=== PATIENT | female | born 1945 | race Caucasian/White ===

== ENCOUNTER → 2018-03-14 11:35 | Outpatient (CLI) | payer MEDICARE, OTHER, SELFPAY ==
--- NOTE | 2018-03-14 | DI.MG.S_ITS ---
BILATERAL DIGITAL SCREENING MAMMOGRAM 3D/2D WITH CAD: 03/14/2018 CLINICAL: Routine screening. Comparison is made to exams dated: 01/21/2015 mammogram, 01/08/2013 mammogram, and 08/25/2010 mammogram - [facility]. The tissue of both breasts is heterogeneously dense. This may lower the sensitivity of mammography. Current study was also evaluated with a Computer Aided Detection (CAD) system. There are benign calcifications in both breasts. No significant masses, calcifications, or other findings are seen in either breast. There has been no significant interval change. IMPRESSION: BENIGN There is no mammographic evidence of malignancy. A 1 year screening mammogram is recommended. This exam was interpreted at Station ID: [id number]. NOTE: For mammograms, a report in lay terms will be sent to the patient. Approximately 15% of breast malignancies will not be visualized mammographically. In the management of a palpable breast mass, a negative mammogram must not discourage biopsy of a clinically suspicious lesion. Electronically Signed By: Carmenza bonner/bogdan:03/14/2018 13:27:00 letter sent: Normal Exam ACR BI-RADS Category 2: Benign Finding(s) 3342F
== END ==
PROVIDERS: PCP Family Medicine; Visit Provider Family Medicine
DX: Z12.31 Encounter for screening mammogram for malignant neoplasm of breast (principal)
CPT/HCPCS: 77063; 77067

== ENCOUNTER → 2020-03-27 10:08 | Outpatient (CLI) | payer MEDICARE, OTHER, SELFPAY ==
--- NOTE | 2020-03-27 | DI.MG.S_ITS ---
BILATERAL DIGITAL SCREENING MAMMOGRAM 3D/2D WITH CAD: 03/27/2020 CLINICAL: Routine screening. Comparison is made to exams dated: 03/14/2018 mammogram - [facility], 01/21/2015 mammogram, and 01/08/2013 mammogram - [facility]. The tissue of both breasts is heterogeneously dense. This may lower the sensitivity of mammography. Current study was also evaluated with a Computer Aided Detection (CAD) system. There are benign calcifications in both breasts. No significant masses, calcifications, or other findings are seen in either breast. There has been no significant interval change. IMPRESSION: There is no mammographic evidence of malignancy. A 1 year screening mammogram is recommended. This exam was interpreted at Station ID: [id number]. NOTE: For mammograms, a report in lay terms will be sent to the patient. Approximately 15% of breast malignancies will not be visualized mammographically. In the management of a palpable breast mass, a negative mammogram must not discourage biopsy of a clinically suspicious lesion. Electronically Signed By: Albert cedeno/bogdan:03/27/2020 15:38:16 copy to: Clarisa Drew letter sent: Normal Exam ACR BI-RADS Category 2: Benign Finding(s) 3342F
== END ==
PROVIDERS: Family Provider Family Medicine; PCP Family Medicine; Referring Provider Family Medicine; Visit Provider Family Medicine
DX: Z12.31 Encounter for screening mammogram for malignant neoplasm of breast (principal)
CPT/HCPCS: 77063; 77067

== ENCOUNTER → 2021-11-26 14:02 | Outpatient (CLI) | payer MEDICARE, OTHER, SELFPAY ==
--- NOTE | 2021-11-26 16:00 | DI.ECHO.S_ITS ---
[facility]---------+ [facility] +---------+ : : [address] : : : : [id number] : : : : Phone: [phone]+ Echocardiogram Report + + :Name: DIPTI RAMIREZ Study Date: 11/26/2021 Height: 67 in : :[facility] ReadingLocation: Weight: 140 lb : : Gender: Female BSA: 1.7 m2 : :: 1945 Age: 76 yrs BP: 126/74 mmHg: :Reason For Study: Murmur : :Ordering Physician: Dr. Raymond : :Shravan Performed By: John Kern : :Referring: Dr. Segundo Cheney : + + Interpretation Summary Normal sinus rhythm. Normal LV size and wall thickness. Normal wall motion and LV systolic function. EF is 60-65%. Stage I diastolic dysfunction. Normal chamber sizes. Aortic sclerosis with mild associated aortic regurgitation. Otherwise no significant valvular abnormalitries. No prior study available for comparison. Procedure: A two-dimensional transthoracic echocardiogram with color flow and Doppler was performed. The study quality was technically adequate. Comparison is made with the echocardiogram of 1945. The patient was in normal sinus rhythm during the exam. Left Ventricle: The left ventricle is normal in size and wall thickness. Left ventricular systolic function is normal. Right Ventricle: The right ventricle is normal in size and function. Atria: Both atria are normal in size. There is no Doppler evidence for an interatrial shunt. Mitral Valve: The mitral valve is normal. There is mild mitral regurgitation. Aortic Valve: The aortic valve is trileaflet. The aortic valve opens well. The aortic valve is mildly calcified. There is mild aortic regurgitation. Tricuspid Valve: The tricuspid valve is normal. There is mild to moderate tricuspid regurgitation. The right ventricular systolic pressure is estimated to be at least 33 mmHg based on an estimated right atrial pressure of 3 mm Hg. Pulmonic Valve: The pulmonic valve leaflets are thin and pliable; valve motion is normal. There is a trace or physiologic amount of pulmonic regurgitation. Great Vessels: The aortic root is normal size. The ascending aorta is normal in size. The aortic arch is normal in size. The IVC is of normal diameter and collapses greater than 50% with a sniff. This suggests a low right atrial pressure of 3 mm Hg. Pericardium/ Pleura There is no pericardial effusion. There is an anterior echo-free space consistent with a fat pad. There is no pleural effusion. MMode/2D Measurements & Calculations LVIDd: 4.7 cm LVOT diam: 1.8 cm LVIDs: 2.7 cm Ao root diam: 2.6 cm FS: 42.6 % asc Aorta Diam: 3.1 cm IVSd: 0.80 cm Ao Arch Diam (Prox Trans): 2.7 cm LVPWd: 1.0 cm LV adams. diameter/BSA (cm/m^2): 2.7 LV sys. diameter/BSA (cm/m^2): 1.6 LA A2 area: 15.0 cm2 RA long axis: 4.8 cm LA A4 area: 11.0 cm2 IVC diam: 1.4 cm LA length (vol): 5.5 cm LA vol: 25.7 ml LA vol index: 14.8 ml/m2 LVLs ap4: 5.2 cm LVLd ap2: 5.9 cm LVLs ap2: 4.8 cm TAPSE_phl: 2.3 cm Doppler Measurements & Calculations Ao V2 max: 136.0 cm/sec LVOT Max Jacob: 91.4 cm/sec Ao V2 mean: 97.9 cm/sec LV V1 max P.3 mmHg Ao max P.0 mmHg LV V1 VTI: 21.4 cm Ao mean P.0 mmHg SAMIR(I,D): 1.8 cm2 Ao V2 VTI: 30.7 cm SAMIR(V,D): 1.7 cm2 sev ratio: 0.70 SAMIR indexed to BSA (cm^2/m^2): 1.0 MV E max jacob: 72.0 cm/sec TR max jacob: 271.5 cm/sec MV A max jacob: 58.3 cm/sec TR max P.5 mmHg MV E/A: 1.2 Med Peak E' Jacob: 7.5 cm/sec E/E' med: 9.7 Lat Peak E' Jacob: 8.7 cm/sec E/E' lat: 8.3 E/e' average: 9.0 MV dec time: 0.15 sec SV(LVOT): 54.5 ml AV VR_phl: 0.67 SAMIR(VTI)/BSA_phl: 1.0 MV P1/2t-pr_phl: 45.0 msec Electronically signed by: Nikia Rouse M.D. on Nadja Physician:11/26/2021 07:06 PM
== END ==
PROVIDERS: Family Provider Family Medicine; PCP Family Medicine; Referring Provider Family Medicine; Visit Provider Family Medicine
DX: M85.851 Other specified disorders of bone density and structure, right thigh (principal); I08.3 Combined rheumatic disorders of mitral, aortic and tricuspid valves; R01.1 Cardiac murmur, unspecified; Z78.0 Asymptomatic menopausal state; Z82.62 Family history of osteoporosis
CPT/HCPCS: 77080; 93306

== ENCOUNTER → 2022-05-26 11:53 | Outpatient (CLI) | payer MEDICARE, OTHER, SELFPAY ==
--- NOTE | 2022-05-26 11:56 | DI.MG.S_ITS ---
BILATERAL DIGITAL SCREENING MAMMOGRAM 3D/2D WITH CAD: 05/26/2022 CLINICAL: Routine screening. Comparison is made to exams dated: 03/27/2020 mammogram, 03/14/2018 mammogram - [facility], and 01/21/2015 mammogram - [facility]. The tissue of both breasts is heterogeneously dense. This may lower the sensitivity of mammography. Current study was also evaluated with a Computer Aided Detection (CAD) system. There are benign calcifications in both breasts. No significant masses, calcifications, or other findings are seen in either breast. There has been no significant interval change. IMPRESSION: BENIGN There is no mammographic evidence of malignancy. A 1 year screening mammogram is recommended. Based on the Tyrer Cuzick model (a risk assessment model) the patient's lifetime risk is 3.7% and her 10 year risk is 0.0%. According to the ACR, ACS, and NCCN guidelines, an annual breast MRI exam along with mammogram is recommended if the patient's lifetime risk is 20% or greater. This exam was interpreted at Station ID: [id number]. NOTE: For mammograms, a report in lay terms will be sent to the patient. Approximately 15% of breast malignancies will not be visualized mammographically. In the management of a palpable breast mass, a negative mammogram must not discourage biopsy of a clinically suspicious lesion. Electronically Signed By: Tom bedoya/bogdan:05/26/2022 13:17:18 copy to: Clarisa Drew letter sent: Normal Exam ACR BI-RADS Category 2: Benign Finding(s) 3342F
== END ==
PROVIDERS: Family Provider Family Medicine; PCP Family Medicine; Referring Provider Nurse Practitioner Family; Visit Provider Nurse Practitioner Family
DX: Z12.31 Encounter for screening mammogram for malignant neoplasm of breast (principal)
CPT/HCPCS: 77063; 77067

== ENCOUNTER → 2024-06-14 11:10 | Outpatient (CLI) | payer MEDICARE, OTHER, SELFPAY ==
--- NOTE | 2024-06-14 11:12 | DI.MRI.S_ITS ---
PROCEDURE: MR LUMBAR SPINE WO CON INDICATIONS: Lumbar radiculopathy, compression fracture TECHNIQUE: Noncontrast sagittal T1 spin echo and T2 fast echo, sagittal STIR, and T2 fast spin echo through the lumbar spine. In cases with scoliosis, additional coronal T2 fast spin echo may be performed. COMPARISON: [facility], CT, CT ABDOMEN PELVIS WITH CONTRAST, 06/22/2022, 22:43. FINDINGS: Image quality: Excellent. Alignment and Curvature: There is trace retrolisthesis L1 on L2, L2 on L3, L3 on L4, trace anterolisthesis of L4 on L5. Bone Marrow: Marrow is of normal overall signal. Moderate reactive endplate changes are present L1-2, mild L2-3. No acute vertebral body compression fractures. Schmorl's node/endplate changes are present at the superior endplates of T12, L1 and L2-2 most prominently. These appear most suggestive of Schmorl's nodes as well compression fracture particularly at L1. The latter appears late subacute/early chronic. Spinal Cord: Conus medullaris terminates at the L1 level. Visualized cord demonstrates normal signal and size. Paraspinous Soft Tissues: No paravertebral masses. Simple renal cyst is present on the left. T12-L1: Mild disc bulge without spinal stenosis or foraminal narrowing. L1-L2: Mild disc bulge with moderate to severe spinal stenosis. Moderate bilateral foraminal narrowing with facet and ligamentum flavum hypertrophy. L2-L3: Mild disc bulge with moderate spinal stenosis. Moderate bilateral foraminal narrowing with facet and ligamentum flavum hypertrophy. L3-L4: Mild disc bulge with moderate spinal stenosis. Moderate left foraminal narrowing with facet and ligamentum flavum hypertrophy. L4-L5: Mild disc bulge with severe spinal stenosis. Moderate to severe bilateral foraminal narrowing with facet and ligamentum flavum hypertrophy. L5-S1: Mild disc bulge without spinal stenosis. Moderate left and lzym-py-ywbeoktt right foraminal narrowing with facet and ligamentum flavum hypertrophy. IMPRESSION: Multilevel disc bulges. Multilevel spinal stenosis most severe at L4-5 secondary to disc bulge with contributing effect of facet/ligamentum flavum arthropathy. Multilevel foraminal narrowing overall moderate secondary to facet and ligamentum flavum arthropathy. Dictated by: Destiny Salinas M.D. on 06/14/2024 at 15:27 Approved by: Destiny Salinas M.D. on 06/14/2024 at 15:49
== END ==
PROVIDERS: Family Provider Family Medicine; PCP Family Medicine; Referring Provider Family Medicine; Visit Provider Family Medicine
DX: M51.17 Intervertebral disc disorders with radiculopathy, lumbosacral region (principal); M51.16 Intervertebral disc disorders with radiculopathy, lumbar region; M47.26 Other spondylosis with radiculopathy, lumbar region; M47.27 Other spondylosis with radiculopathy, lumbosacral region; M48.061 Spinal stenosis, lumbar region without neurogenic claudication; M48.07 Spinal stenosis, lumbosacral region; S32.000A Wedge compression fracture of unspecified lumbar vertebra, initial encounter for closed fracture
CPT/HCPCS: 72148

== ENCOUNTER → 2024-06-19 12:57 | Outpatient (CLI) | payer MEDICARE, OTHER, SELFPAY ==
--- NOTE | 2024-06-19 13:46 | EKG_ITS ---
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
[2024-06-19 14:20] LABS: Add Manual Diff / Slide Review NO; Basophils Absolute Auto 100 /uL (0-100); Basophils Percent Auto 0.9 % (0-2); Eosinophils Absolute Auto 100 /uL (0-450); Eosinophils Percent Auto 1.8 % (2-4); Hematocrit 38.9 % (36-46); Hemoglobin 13.1 g/dL (12.0-16.0); Lymphocytes Absolute Auto 1600 /uL (1100-4500); Lymphocytes Percent Auto 28.6 % (25-40); Mean Corpuscular HGB Conc 33.6 % (30-36); Mean Corpuscular Hemoglobin 31.8 PG (26-34); Mean Corpuscular Volume 94.7 fL (80-100); Monocytes Absolute Auto 400 /uL (0-900); Monocytes Percent Auto 6.6 % (3-14); Neutrophils Absolute Auto 3400 /uL (1500-7000); Neutrophils Percent Auto 62.1 % (50-75); Platelet Count 253 X10^3/uL (150-400); Red Blood Cell Count 4.11 X10^6/uL (4.0-5.2); Red Cell Distribution Width 13.6 % (11.6-14.8); White Blood Cell Count 5.5 X10^3/uL (4.5-11.0)
[2024-06-19 14:49] LABS: BUN Creatinine Ratio 32.4 (6-22); Blood Urea Nitrogen 22 mg/dL (7-17); Calcium 9.9 mg/dL (8.4-10.2); Carbon Dioxide 30 mmol/L (22-32); Chloride 105 mmol/L (98-107); Estimated Glomerular Filt Rate > 60 mL/min (>60); Glucose 130 mg/dL (80-110); HEMOLYSIS < 15 (0-50); Sodium 140 mmol/L (137-145)
== END ==
LOC: LAB 12:59
PROVIDERS: Family Provider Family Medicine; PCP Family Medicine; Referring Provider Orthopaedic Surgery Orthopaedic Surgery of the Spine; Visit Provider Orthopaedic Surgery Orthopaedic Surgery of the Spine
DX: Z01.818 Encounter for other preprocedural examination (principal); Z01.812 Encounter for preprocedural laboratory examination
CPT/HCPCS: 36415; 80048; 85025; 93005

== ENCOUNTER → 2024-06-27 11:19 | Outpatient (CLI) | payer MEDICARE, OTHER, SELFPAY ==
--- NOTE | 2024-06-27 11:21 | DI.CT.S_ITS ---
PROCEDURE: CT LUMBAR SPINE WO CON INDICATIONS: SPINAL STENOSIS,LUMBAR REGION TECHNIQUE: Noncontrast 3 mm thick sections acquired from the T12 level to the sacrum. Sagittal and coronal reformats were constructed. For radiation dose reduction, the following was used: automated exposure control. COMPARISON: [facility], MR, MR LUMBAR SPINE WO CON, 06/14/2024, 11:31. [facility], CR, XR LUMBAR SPINE 2 OR 3 VIEWS, 06/19/2024, 12:05. FINDINGS: Image quality: Excellent. Bones: Diffuse osseous demineralization. Re-identified L1 compression fracture with up to 50 percent height loss and without significant retropulsion. Re-identified Schmorl's nodes at the T12, L2, and L3 superior endplates. Multilevel facet arthropathy and ligamentum flavum hypertrophy. Multilevel disc bulges. Grade 1 anterolisthesis of L4 on L5. T12-L1: No severe central bony canal stenosis. No severe neural foraminal stenosis. L1-L2: Severe central bony canal stenosis, better identified on the 06/14/2024 MRI lumbar spine examination. No severe neural foraminal stenosis. L2-L3: No severe central bony canal stenosis. Moderate left and severe right neural foraminal stenosis. L3-L4: No severe central bony canal stenosis. Mild bilateral neural foraminal stenosis. L4-L5: No severe bony canal stenosis. Mild bilateral neural foraminal stenosis. L5-S1: No severe central bony canal stenosis. No severe neural foraminal stenosis. Soft tissues: No retroperitoneal masses or hematomas. Visualized aorta is normal in caliber. Aortic vascular calcifications. Surgical clips secondary to prior cholecystectomy IMPRESSION: 1. Re-identified L1 compression fracture with up to 50 percent height loss. 2. Severe central bony canal stenosis at L1-L2, better identified on the 06/14/2024 MRI lumbar spine examination. Dictated by: Jung Matthews M.D. on 06/27/2024 at 16:33 Approved by: Jung Matthews M.D. on 06/27/2024 at 17:02
== END ==
PROVIDERS: Family Provider Family Medicine; PCP Family Medicine; Referring Provider Orthopaedic Surgery Orthopaedic Surgery of the Spine; Visit Provider Orthopaedic Surgery Orthopaedic Surgery of the Spine
DX: M48.062 Spinal stenosis, lumbar region with neurogenic claudication (principal); M48.56XA Collapsed vertebra, not elsewhere classified, lumbar region, initial encounter for fracture
CPT/HCPCS: 72131

== ENCOUNTER 2024-07-16 11:04 | Inpatient (IN) | payer MEDICARE, OTHER, SELFPAY ==
[2024-07-12 13:31] VITALS: BMI 23.3
[2024-07-16] VITALS (16 sets, daily range): BP systolic 92–175; BP diastolic 53–82; PULSE 60–95; RESP 8–20; TEMP 36.2–36.6; O2SAT 92–100; BMI 23.3
--- NOTE | 2024-07-16 | DI.RAD.S_ITS ---
PROCEDURE: XR LUMBAR SPINE 2-3V INDICATIONS: TLIF L4-5 TECHNIQUE: 2 spot fluoroscopic intraoperative images of the lower lumbar spine. COMPARISON: [facility], CT, CT LUMBAR SPINE WO CON, 06/27/2024, 11:35. [facility], CR, XR LUMBAR SPINE 2 OR 3 VIEWS, 06/19/2024, 12:05. FINDINGS: Intraoperative images demonstrate postsurgical changes from posterior fixation at L4-5 with bilateral pedicle screws and interbody rods and an L4-5 disc spacer. IMPRESSION: Intraoperative images demonstrate posterior fixation at L4-5. Approved by: Tom Boles M.D. on 07/16/2024 at 21:12
--- NOTE | 2024-07-16 11:59 | PM.PREOP ---
Pre-operative Note Interval Note History & Physical reviewed/Exam performed by Physician: Yes Changes to H&P: No
[2024-07-16] MEDS: LACTATED RINGERS 1,000 ML 42 ML IV ×2 (12:02→14:02)
--- NOTE | 2024-07-16 12:37 | SUR.OPER ---
Prone on spine table, head in foam head support, padded chest and pelvic supports, gel pad at knees, lower legs supported by pillows; nipples, genitalia and toes free of pressure, arms secured on foam padded arm boards at <90 degrees abduction. Tape over blanket at thigh secured to table.
[2024-07-16] MEDS: CEFAZOLIN 2 GM/100 ML PREMIX 100 ML IV ×2 (12:45→20:21)
[2024-07-16] MEDS: BUPIVACAINE LIPOSOME 266 MG/20 ML VIAL INJ (13:01)
[2024-07-16] MEDS: BUPIVACAINE 0.25% (PF) 30 ML, EPINEPHrine 0.15 MG INJ (13:02)
--- NOTE | 2024-07-16 14:47 | PM.OP.1 ---
Operative Date/Time/Diagnoses Date of procedure: 07/16/24 Time of procedure: 12:40 Pre-op diagnosis: 1. L4-5 anterolisthesis 2. L4-5 spinal stenosis with radiculopathy Post-op diagnosis: same Procedure & Clinicians Procedure: 1. L4-5 Postero-lateral and posterior interbody fusion 2. L4-5 interbody cage placement. 3. L4-5 decompressive laminectomy with bilateral facetecomies 4. L4-5 Posterior non-segmental instrumentation 5. [place] of bone marrow from iliac crest 6. Utilization of microsurgical technique and operating microscope 7. Utilization of robotic assisted navigation Same procedure as scheduled: Yes Indications: Patient has been having chronic back pain and worsening lumbar radiculopathy. Patient failed multiple conservative management with worsening pain weakness and numbness in her lower extremity. Patient has been having difficulty performing activity of daily living. After discussing risks benefits of treatment options, patient elected proceed with surgery. Surgeon: Basil Roe Torch Straightener: Irma Salinas Click Yes if Unassisted: No Anesthesia Type: General Operative Notes Closure Type: primary Specimen(s): none sent Prosthetic devices, grafts, tissues, transplants, or devices: Globus CREO MIS screws, Rise cage Estimated Blood Loss (mL): 50 Blood products transfused: none Procedure in detail: Patient was seen in the preoperative area. Risks and benefits of the surgery was discussed with the patient. Informed consent was obtained from the patient and placed in the chart. Surgical site was marked. Patient was taken to the operative room. General anesthesia was administered. Prophylactic antibiotic was given to the patient less than 30 min before the incision was made. Patient was placed into a prone position on the [place] table. Patient's back was then prepped and draped in the sterile fashion. Time-out was performed at this time. After patient was prepped and draped, patient's PSIS was palpated and marked bilaterally. Small 1 cm incision was made over the PSIS for placement of the reference probes. Two trocar was placed into the PSIS 1 on each side. The reference probe was attached to the trocar of the reference apparatus. At this time the C-arm imaging was used to confirm AP and lateral of L4-5 vertebrae and merged the C-arm imaging using the Sorbisense robotic navigation system with the CT of the lumbar spine. After successful merging was completed and confirmed, skin marker was used to ranjan out the skin incision using the Sorbisense robotic arm. Bilateral incision was made at this time. Pre templated trajectory was used and guided using the Sorbisense robotic navigation system for bilateral L4-5 pedicle screw placement. This was done by using the robotic arm to guide the high-speed bur to make a cortical entry point. Next a drill was placed also using the robotic arm and guided using the navigation system drilling partially through bilateral L4 and L5 pedicles. Next L4-5 pedicle screws it was pre templated and measured was placed onto the power national van truck driver and inserted into the pedicles bilaterally. After all 4 screws were placed C-arm imaging was taken of both AP and lateral to confirm the placement. Excellent placement of the screws were confirmed and a matched precisely with the pre planned screw placement using the navigation system. MARs retractor was inserted using [employer] guidence. Globus MARS retractors was placed inside the incision and docked onto the L4 lamina. Using microsurgical technique and operating microscope, a L4 laminectomy and L4-5 facetectomy was performed using a Kerrison rongeur. Patient was found have severe lateral recess and neural foramen stenosis which was fully decompressed after the laminectomy facetectomy. The laminectomy and facetectomy was performed in order to decompress patient's cauda equina as well as the nerve roots exiting at the L4-5 level. More than 75% of the facets were removed during the process of decompression rendering L4-5 level grossly unstable and required a fusion procedure at the same time. The disc space at L4-5 was identified, and a total diskectomy was performed at L4-5 level. The endplates were decorticated using a rasp and shaver. The total diskectomy and decortication was performed at L4-5 level in order to to accomplish a L4-5 fusion. The local bone from the laminectomy and facetectomy was saved for local bone grafting. After the total diskectomy and decortication was completed, Viacel bone graft material was combined with local bone that was harvested earlier. At this time, a separate skin is incision was made over the iliac crest. A Jamshidi needle was inserted into the iliac crest through a separate skin incision. 5 cc of bone marrow aspiration was obtained through the separate skin incision using a Jamshidi needle from the iliac crest. The bone marrow aspiration was combined with local bone and the Viacel bone grafting material. The bone grafting material was placed into the L4-5 interbody space along with a expandable cage. The cage was expanded to its maximum height using the torque limiting screwdriver. The disc preparation as well as the cage insertion were also performed under navigation guidance. After the cage was placed, AP and lateral C-arm imaging was taken to confirm placement of the cage and excellent position was confirmed. Globus MARS retractor was inserted and docked onto the L4-5 posterolateral gutter on the right side. Using the power drill, posterior-lateral decortication was performed at L5-S1 level until bleeding cortical bone was identified. The remaining bone grafting material was placed into the L4-5 posterior lateral gutter he order to accomplish posterolateral fusion at the L5-S1 level. At this time the tulips were attached to the L4-5 pedicle screw shanks. After measuring the length of the rods, they were inserted into the tulips of the pedicle screws and locked in place using locking caps and torque limiting screwdriver bilaterally. Total 4 caps and 2 titanium rods was used in order to complete the posterior instrumentation construct. After all the hardware was placed, and confirmed with AP and lateral C-arm imaging, the wound was then irrigated with sterile normal saline and packed with Ray-Stephan gauze for 3 min to accomplish hemostasis. After the gauze was removed the deep fascia was closed with #1 Vicryl suture. The subcutaneous layer was closed with 2-0 Vicryl. The skin was closed with skin malathi. Patient tolerated the procedure well. There were no complications. Neuro monitoring system was used to monitor patient's neurologic status throughout entire procedure. There was no disturbance of the neural monitoring signals throughout the case. The Operation could not have been safely performed without compromising the technical result or length of the procedure, without the assistance of a skilled surgical territory manager. The surgical territory manager was medically necessary for proper positioning, retraction and manipulation of instruments, proper exposure, surgical preparation, and manipulation of tissue. Complications: none Post-operative Condition: stable Disposition: PACU Plan for aftercare: Admit to inpatient hospital
[2024-07-16] MEDS: HYDROMORPHONE 1 MG INJ IV ×2 (15:13→15:40)
[2024-07-16] MEDS: hydrOXYzine 50 MG/ML INJ 25 MG IM (15:18)
[2024-07-16] MEDS: LACTATED RINGERS 1,000 ML 125 ML IV (16:37)
[2024-07-16] MEDS: ACETAMINOPHEN 325 MG TABLET 650 MG PO ×2 (17:36→23:13)
[2024-07-16] MEDS: ONDANSETRON 4 MG ODT SL (18:13)
[2024-07-16] MEDS: DOCUSATE 100 MG CAPSULE PO (20:20)
[2024-07-16] MEDS: SENNOSIDES 8.6 MG TABLET 17.2 MG PO (20:20)
[2024-07-17 03:15] VITALS: BP 139/55; PULSE 67; RESP 18; TEMP 36.4; O2SAT 98
[2024-07-17] MEDS: CEFAZOLIN 2 GM/100 ML PREMIX 100 ML IV (05:12)
[2024-07-17] MEDS: ACETAMINOPHEN 325 MG TABLET 650 MG PO ×2 (05:12→12:48)
[2024-07-17] MEDS: ONDANSETRON 4 MG ODT SL (05:19)
[2024-07-17 08:00] VITALS: BP 134/58; PULSE 64; RESP 16; TEMP 36.3; O2SAT 98
[2024-07-17] MEDS: MULTIVITAMIN 1 TABLET 1 TAB PO (09:29)
[2024-07-17] MEDS: DOCUSATE 100 MG CAPSULE PO (09:29)
[2024-07-17] MEDS: ASCORBIC ACID 500 MG TABLET PO (09:29)
--- NOTE | 2024-07-17 09:35 | OT.IP.EVAL ---
Current Diagnoses Spondylolisthesis, lumbar region (07/16/24) Spinal stenosis, lumbar region with neurogenic claudication (07/16/24) Surgery Performed Operation Date: 07/16/24 12:15 Actual Procedures p L4-5 TLIF-Robot - Basil Roe MD Past Medical History (Last Updated 07/13/24 @ 09:20 by Ivanna Bell, RN) Anemia History of fractured vertebra (11/2022) Osteoarthritis Osteoporosis Vaso vagal episode Surgical History (Last Updated 07/13/24 @ 09:20 by Ivanna Bell, RN) History of partial knee replacement (2017) Hx of appendectomy Hx of arthroscopic knee surgery Hx of cholecystectomy S/P small bowel resection (2019) S/P trigger finger release Occupational Therapy Inpatient Evaluation/Re-Eval M1 PT/OT-IP Prior Functional Status Start: 07/17/24 10:08 Freq: NEEDED Status: Active Protocol: Document 07/17/24 09:35 [facility] (Rec: 07/17/24 10:20 [facility] [id number]) Medical Review Prior Functional Status Communication Independent Mobility and Gait Independent with no devices. Activities of Daily Living and IADL's Independent with ADL and IADL needs. Social History Household Members spouse Living Arrangements House Number of Floors (Floors) Two Floors Number of Stairs To Enter/Railing? Pt able to stay on the main level. 75ft from the car to the deck with two steps and no rail. Home Environment Standard Height Toilet,Walk in Shower Home Equipment Front Wheel Walker,Shower Seat without Backrest,Hand Held Shower Additional Social History Comment Pt has suction cup grab bars and walking sticks. M2 OT-IP Current Condition Start: 07/17/24 10:08 Freq: Status: Active Protocol: Document 07/17/24 09:35 [facility] (Rec: 07/17/24 10:20 [facility] [id number]) Occupational Therapy Current Condition Current Condition Evaluation Date 07/17/24 Treatment Diagnosis S/P L4-5 TLIF Diagnosis Onset Date 07/16/24 Post Operative Precautions Lumbar Precautions Log Roll,No Twisting,Limit Bending,Lifting Restriction of 10 lbs,Gait Belt above Incisional Area M3 OT- IP Subjective and Pain Start: 07/17/24 10:08 Freq: Status: Active Protocol: Document 07/17/24 09:35 [facility] (Rec: 07/17/24 10:20 [facility] [id number]) OT- Subjective Occupational Therapy Visit Type Type Initial Evaluation Visit Start Time 08:45 Visit Stop Time 09:35 Occupational Therapy Visit Comments Patient Comments Pt agreed to get up, use the toilet and get dressed. Pt's present. Patient/Caregiver Goals TO go home. OT Pain Assessment Pain When Pain Assessed At Rest Pain Present Pain Present Pain Reported Location back Intensity 2 Scale Used Numeric (0 - 10) M4 OT- IP ADL's Start: 07/17/24 10:08 Freq: Status: Active Protocol: Document 07/17/24 09:35 [facility] (Rec: 07/17/24 10:20 [facility] [id number]) OT CYC-Xpjm-Mrkqeuj General Evaluation Self-Feeding Ability Independent OT ADL-Grooming General Evaluation Grooming Ability Standby Assistance Areas Needing Assistance Retrieving/Set-up of Grooming Items Comments OT Grooming Comments WHile standing with FWW at the sink. OT ADL-Oral Care General Eval Oral Care Ability Independent OT ADL-Dressing General Eval Upper Body Dressing Ability Minimal Assistance Lower Body Dressing Ability Moderate Assistance Areas Needing Assistance Underpants/Brief Assistive Devices Dressing Assistive Devices Supervisor Fertilizer Comments OT Dressing Comments Assist to help thread pants over her feet and pants up over her hips. Pt states will just wear slip on shoes. Pt has knee issues and educated to dress the weaker leg first and take out last. OT ADL-Toileting General Evaluation Toileting Ability Minimal Assistance Areas Needing Assistance Manage Clothing Comments OT Toileting Comments Assist to help pull up brief. Educated best to stand and wipe to best follow her lumbar precautions. OT ADL-Bathing Comments OT Bathing Comments Pt's to install a HHPS. Educated to cover the dressing fro showering needs. M5 OT- IP IADL's Start: 07/17/24 10:08 Freq: Status: Active Protocol: Document 07/17/24 09:35 [facility] (Rec: 07/17/24 10:20 [facility] [id number]) OT-Instrumental Activities of Daily Living Home Safety Awareness Awareness of Need for Assistance at Home Good Awareness Ability to Problem Solve Emergency Able to Problem Solve Situations Medication Management Medication Management No Deficits Identified Meal Preparation Meal Preparation Caregiver Provides Assist Feltmaker And Weigher Feltmaker And Weigher Caregiver Provides Assist M6 OT- IP Functional Cognition Start: 07/17/24 10:08 Freq: Status: Active Protocol: Document 07/17/24 09:35 [facility] (Rec: 07/17/24 10:20 [facility] [id number]) Cognitive Factors Limiting Selfcare Function Cognitive Ability Level of Alertness Alert Patient Orientation Name,Age,Birthday,Month,Date, Year,Day of Week,Place, Situation Attention Span Ability Capable of Focused Attention, Capable of Sustained Attention Ability to Follow Commands Able to Follow One Step Commands Cognitive Comments Cognitive Assessment Comments Pt able to follow commands. Pt is a little groggy yet and needing reminders to help follow her back precautions. OT- Vision and Hearing OT- Hearing Assessment OT- Hearing Assessment WFL OT- Vision Assessment Visual Acuity WFL Visual Attentiveness WFL Occular Pursuits WFL M7 OT- IP Mobility and Balance Start: 07/17/24 10:08 Freq: Status: Active Protocol: Document 07/17/24 09:35 [facility] (Rec: 07/17/24 10:20 [facility] [id number]) OT- Bed Mobility Assessment Rolling Type of Rolling Roll to Left Level of Assistance Standby Assistance Supine to Sit Supine to Sit Assist Standby Assistance Sit to Supine Sit to Supine Assist Standby Assistance OT-Transfer Assessment Sit to and From Stand Sit to and from Stand Contact Guard Assistance Transfers Transfer Ability Contact Guard Assistance Technique Transfer Destination Bed,Chair,Toilet Transfer Technique Stand Step Pivot Devices Transfer Assistive Devices Gait Belt,Front Wheeled Walker Comments Mobility Comments Pt SBA for log rolling and CGA with FWW. Pt tends to cross her heels during walking with FWW and cues to keep her feet apart. Pt's able to fiona/doff the gait belt and assist her safely. OT- Balance Assessment Sitting Balance and Reactions Static Sitting Balance Ability Good Dynamic Sitting Balance Ability Good Standing Balance and Reactions Static Standing Balance Ability Good Dynamic Standing Balance Ability Fair M8 OT- IP Objective Assessments Start: 07/17/24 10:08 Freq: Status: Active Protocol: Document 07/17/24 09:35 [facility] (Rec: 07/17/24 10:20 [facility] [id number]) OT Gross Range of Motion Upper Extremity Range of Motion Assessment Within Functional Limits OT Strength Upper Extremity Strength Assessment Within Functional Limits M9 OT- IP Assessment and Plan Start: 07/17/24 10:08 Freq: Status: Active Protocol: Document 07/17/24 09:35 [facility] (Rec: 07/17/24 10:20 [facility] [id number]) OT Summary Assessment and Plan Potential Rehabilitation Potential Excellent Analytic Complexity at Evaluation Low Summary OT Impairments Pain,Strength,Balance, Functional Mobility,Dressing, Toileting,Bathing,Toilet Transfers,Shower Transfers Progress Towards Goals Progressing Toward Goals Assessment Summary Pt low complexity and main barriers are pain,steps, a little groggy and needing reminders to follow her back precautions. Pt has a very supportive to be able to assist pt for all needs at home. Pt to go home when medically stable. Goals Dressing Goal Independent,Supervisor Fertilizer Toileting Goal Independent Bathing Goal Standby Assistance Toilet Transfer Goal Independent Shower Transfer Goal Standby Assistance Days to Meet Goals 3 Frequency of Treatment Frequency Of Treatment Once a Day Treatment Plan OT Treatment Plan ADL Training,Functional Mobility,Patient/Family Education,Discharge Planning Discharge Recommendations OT Discharge Recommendations Home with Assistance Transportation Needs at Discharge Private Vehicle
--- NOTE | 2024-07-17 10:06 | PT.IIE ---
Current Diagnoses Spondylolisthesis, lumbar region (07/16/24) Spinal stenosis, lumbar region with neurogenic claudication (07/16/24) Surgery Performed Operation Date: 07/16/24 12:15 Actual Procedures p L4-5 TLIF-Marlene - Basil Roe MD Surgical History (Last Updated 07/13/24 @ 09:20 by Ivanna Bell, RN) History of partial knee replacement (2017) Hx of appendectomy Hx of arthroscopic knee surgery Hx of cholecystectomy S/P small bowel resection (2019) S/P trigger finger release Medical History (Last Updated 07/13/24 @ 09:20 by Ivanna Bell, RN) Anemia History of fractured vertebra (11/2022) Osteoarthritis Osteoporosis Vaso vagal episode Physical Therapy Inpatient Evaluation/Re-Eval M1 PT/OT-IP Prior Functional Status Start: 07/17/24 12:46 Freq: NEEDED Status: Active Protocol: Document 07/17/24 10:06 AB (Rec: 07/17/24 13:04 AB [id number]) Medical Review Prior Functional Status Communication Independent Mobility and Gait Independent with no devices. Activities of Daily Living and IADL's Independent with ADL and IADL needs. Social History Household Members spouse Living Arrangements House Number of Floors (Floors) Two Floors Number of Stairs To Enter/Railing? 5 steps R rail ascending to enter the house from the rear door Home Environment Standard Height Toilet,Walk in Shower Home Equipment Front Wheel Walker,Raised Toilet Seat w/Armrests,Shower Seat without Backrest,Grab Bars In Shower Additional Social History Comment pt has walking sticks M2 PT-IP Current Condition Start: 07/17/24 12:46 Freq: NEEDED Status: Active Protocol: Document 07/17/24 10:06 AB (Rec: 07/17/24 13:04 AB [id number]) Physical Therapy Current Condition Current Condition Evaluation Date 07/17/24 Treatment Diagnosis s/p L4-5 TLIF; difficulty in walking Onset Date 07/16/24 M3 PT-IP Subjective Start: 07/17/24 12:46 Freq: NEEDED Status: Active Protocol: Document 07/17/24 10:06 AB (Rec: 07/17/24 13:04 AB [id number]) Subjective Physical Therapy Visit Type Type Initial Evaluation Visit Start Time 10:06 Visit Stop Time 10:40 Number of SEVERITY OF ILLNESS COORDINATOR Visits 0 Physical Therapy Visit Comments Patient Comments agreeable to do PT Therapy Pain Assessment Pain When Pain Assessed At Rest Pain Present Pain Present Pain Reported Location back Intensity 3 Scale Used Numeric (0 - 10) Pain Behaviors Guarding Pain Management Techniques Distraction,Modification of Treatment,Re-positioning, Timing of Activity with Medications M4 PT-IP Mobility and Gait Start: 07/17/24 12:46 Freq: NEEDED Status: Active Protocol: Document 07/17/24 10:06 AB (Rec: 07/17/24 13:04 AB [id number]) PT-Bed Mobility Assessment Rolling Type of Rolling Log Rolling Level of Assist Standby Assistance Supine to Sit Supine to Sit Standby Assistance Sit to Supine Sit to Supine Standby Assistance PT-Transfer Assessment Sit to and From Stand Sit to and from Stand Standby Assistance,Contact Guard Assistance,1 Person Assistance,Use of Upper Extremities Equipment Transfer Assistive Device Gait Belt,Front Wheeled Walker Orthotic/Prosthetic Devices or Brace: No Comments Mobility Comments pt supine in bed and agreeable to do PT. pt's spouse in room with pt. obtained PLOF and home set up from pt and spouse . pt stated that she was just up on the chair and sitting aggravates back pain and does not want to sit on the chair but agreed to get up with PT. reviewed back precautions with pt. pt completed log roll supine to sit SBA. completed sit to stand CGA and ambulated in room using FWW ~ 20 ft CGA. pt sat on EOB completed bed mobility log roll sit<> supine SBA. pt agreed to do stairs. sit to stand from EOB SBA and ambulated to the stairs using FWW SBA to occasional CGA ~ 100 ft. pt completed stairs climbing SBA: holding R rail with B hands and repeated another set just holding on to R rail with 1 hand. pt ambulated back to her room using FWW SBA. requested to go back to bed. log roll sit to supine SBA. positioned pt in bed. call light and table placed within reach. informed spouse to assist pt as needed. spouse stated that OT already taught him on how to use safety belt. educated spouse on how to assist pt as needed. pt and spouse understood. Gait Assessment Gait Gait Assistance Required: Standby Assistance,Contact Guard Assist Distance (Feet) 100 Able to Maintain Weight Bearing Status Yes During Gait Assistive Devices Assistive Device Gait Belt,Front Wheeled Walker Orthotic/Prosthetic Devices or Brace: No Gait Deviations General Gait Pattern Decreased Stride Length, Decreased Feet Clearance Factors Limiting Gait Function Factors Limiting Gait Function Decreased Activity Tolerance, Decreased Strength,Difficulty Following Directions,Limited Range of Motion,Pain,Poor Balance,Poor Safety Awareness Stair Climbing Assessment Evaluation Level of Assist On Stairs Standby Assistance Devices Stair Climbing Assistive Devices Right Railing Technique/Endurance Stair Climbing Direction Ascend and Descend Stair Climbing Technique Step to Step Number of Steps Climbed 3 Query Text: Stair Climbing Set # Repetitions (reps) 2 PT-Balance Assessment Sitting Balance and Reactions Static Sitting Balance Ability Normal Dynamic Sitting Balance Ability Good Standing Balance and Reactions Static Standing Balance Ability Good Dynamic Standing Balance Ability Fair Device Used FWW M5 PT-IP Objective Assessments Start: 07/17/24 12:46 Freq: NEEDED Status: Active Protocol: Document 07/17/24 10:06 AB (Rec: 07/17/24 13:04 AB [id number]) Orientation Orientation/Cognition Level of Alertness Alert Orientation Name,Age,Birthday,Place, Situation Language Function Ability No Deficits Noted Safety Awareness Decreased Safety Awareness Memory Description No Deficits Noted Gross Range of Motion Lower Extremity ROM Assessment Within Functional Limits Strength Lower Extremity Strength Assessment Within Functional Limits Coordination Assessment Gross Coordination Gross Coordination WNL Sensation Assessment Sensation Gross Sensation WNL Muscle Tone Muscle Tone WNL Yes M6 PT-IP Treatment Start: 07/17/24 12:46 Freq: NEEDED Status: Active Protocol: Document 07/17/24 10:06 AB (Rec: 07/17/24 13:04 AB [id number]) Physical Therapy Treatment Education Education Provided Precautions,Weight Bearing Status,Safety M7 PT-IP Assessment and Plan Start: 07/17/24 12:46 Freq: NEEDED Status: Active Protocol: Document 07/17/24 10:06 AB (Rec: 07/17/24 13:04 AB [id number]) PT Summary Assessment and Plan Potential Rehabilitation Potential Good Status of Condition at Evaluation Stable Summary Impairments Pain,ROM,Strength,Balance, Cognition,Bed Mobility, Transfers,Gait,Activity Tolerance Assessment Summary pt is a 79 y/o F s/p L4-5 TLIF POD 1. pt requiring SBA to CGA with mobility using FWW. pt plans to go home and spouse to assist. pt may go home when medically stable. Goals Bed Mobility Goal Independent Transfer Goal Independent,Front Wheeled Walker Gait Goal Independent,Front Wheel Walker Gait Distance 200 Other Goals up/down 5 steps R rail ascending mod I Days to Meet Goals 3 Frequency of Treatment Frequency Of Treatment Twice a Day Treatment Plan Physical Therapy Treatment Plan Bed Mobility Training,Transfer Training,Gait Training, Therapeutic Exercise,Balance Retraining,Post Op Education, Discharge Planning,Hot or Cold Pack,Neuromuscular Re-ed, Coordination Retraining,Manual Therapy Precautions Lumbar Precautions Log Roll,No Twisting,Limit Bending,Lifting Restriction of 10 lbs,Gait Belt above Incisional Area Recommendations To Nursing Amount of Assist Needed 1 Person Assist Discharge Recommendations PT Discharge Recommendations Home with Assistance Transportation Needs at Discharge Private Vehicle
--- NOTE | 2024-07-17 11:26 | CM.DANOTE ---
Initial DCP Assessment Visit Note Reviewed EMR and team rounds for status updates. Went to meet with pt/spouse at bedside, however they were working with OT at the time of this visit. Pt lives independently at baseline with her spouse in their own home on [address], her spouse states that he will be able to assist with pt's postoperative care and recovery needs, and will f/u with OP PT after she's cleared by Ortho at her f/u visit. Spouse will transport home later today after working with PT. No identified CM assistance needs identified for home d/c at this time. Payor: Medicare PCP: Dr. Segundo Cheney Pt is a 79 year-old F post-op day 1 from lumbar surgery. Pt is doing well postoperatively, she did not use an AD at baseline, however has obtained both a walker and cane for home recovery needs. Pt to d/c home later this afternoon. No further hx was provided by Ortho in their H&P re: symptoms or difficulty with ADL's, or for how long this has been an issue for her. She was able to work with both PT and OT with no concerns, and is medically cleared for d/c. Discharge Planning/Care Management Advanced directive, confirm from FAMILY Start: 07/16/24 16:25 Freq: Q24H Status: Active Protocol: Document 07/16/24 16:25 MM (Rec: 07/16/24 16:26 MM [id number]) Advance Directive, confirm on record Time 16:26 Person contacted pt Copy received No CM Discharge Assessment Start: 07/17/24 10:42 Freq: Status: Active Protocol: Document 07/17/24 10:42 DPL (Rec: 07/17/24 11:26 DPL [id number]) Discharge Planning Assessment Assigned Offset Lithographic Press Setter KEESHA Langston Advance Directives? Yes Advance Directives on File No History Provided By Medical Record Expected Length of Stay 1 Has Patient been admitted in last 30 No days? Prior Living Arrangements House Household Members spouse Type of transporation used prior to Drives own vehicle admit Independent with ADL's Yes Is patient alert and oriented? Yes Caregiver for Another No DME Already Rented / Owned FWW / Walker,Cane Patient/Family Preference OP PT Therapy Discharge Plan Home Community Services Physical Therapy Transportation Arrangement Spouse Referrals Initiated None needed Review Status In Process Please Provide Date Initial DC 07/17/24 Assessment Was Performed Pre-Anesthesia Assessment Start: 07/12/24 13:31 Freq: Status: Active Protocol: Document 07/12/24 13:31 LB (Rec: 07/12/24 13:46 LB [id number]) Pre-Anesthesia Assessment Patient Information Reviewed Via Phone Assessment Assessment Completed With Patient Diagnostic Results BMP/CMP,CBC,EKG Comment 06/19/24 at . Primary Care Provider Segundo Cheney Medical Clearance Received Not Applicable Seen Specialist in Last 12 Months Yes Specialist Seen Orthopedist Primary Language Emir[place] Preferred Language [place] Nutrition Associate Required No Height 167.64 cm Weight 65.771 kg Body Mass Index (BMI) 23.3 Hearing Ability Normal Visual Impairment No Limitations Barriers to Learning None Other Aids No Hx Anesthesia Reactions Yes: PONV, sensitive to medications. Hx Family Anesthesia Reaction No Hx Malignant Hyperthermia No Hx Blood Transfusions No Anesthesia Review Requested No Welder Shielded Metal Arc No alcohol intake never Smoking Status Never smoker Substance Use Type does not use Pain Present Pain Reported Comment back, radiating down Musculoskeletal Symptoms Back Pain,Difficulty Walking, Joint Pain,Radiating Pain into Limb History of Falling (Recent or History of No ) Patient is completely paralyzed or No completely immobile Prosthesis or Orthotic Device Front Wheel Walker Mental Status Oriented to own ability Is patient on oxygen? No Does patient have NETTLES/SOB No Hx Sleep Apnea No CPAP/BIPAP use not prescribed Suspected Sleep Apnea No Currently Taking a Beta Negro No Can You Climb a Flight of Stairs Without Yes SOB Hx Chest Pain No Hx SOB No Hx Syncope or Dizziness No Anti-Coagulant Therapy No Has a Clay Shop Supervisor No Cardiac Testing Yes: 06/19/24 EKG at . Hx Pacemaker/ICD No Dysphagia No Bladder Pattern Nocturia Urinary Catheter Present No Hx Urinary Self Catheterization No Diabetes No Patient No Lactating No Presence of External or Internal Medical Yes: Left knee hardware. Devices Have you had any close contact with No someone diagnosed with COVID-19? Are you experiencing any of these No symptoms symptoms? Marital Status Lives With spouse Current Living Arrangements House Number of Floors (Floors) Two Floors Number of Stairs To Enter/Railing? 5 steps with railing to enter home. Support System Spouse Does the Patient Have Assistance After Yes Surgery Patient Discharge Plan Description Return Home Additional comment advised 1-2 nights LOS per surgeon. Feels Safe in Current Environment Yes Do you have a plan to hurt yourself or No Plan others? Do You Have Any Spiritual Beliefs That No May Affect Your HC Choices? Do You Have Any Cultural Practices That No May Affect Your HC Choices? Health Care Proxy/Next of Kin [facility] [place] Health Care Proxy Emergency Contact Name [place] Emergency Contact does not work on [place] Advance Directives? Yes Advance Directives on File No Requested Patient Bring Advanced Yes Directives DOS Power of Afternoon Babysitter Yes Power of Afternoon Babysitter Name [place] Power of Afternoon Babysitter PAC Instructions Assistance for 24 hours post- op,Durable medical equipment, Medications to take/avoid, Nasal antibiotic,No ETOH/ petroleum product on skin DOS, NPO,Pre-surgical wash,Sensory aids,Sturdy shoes/comfortable clothes,Do not bring valuables and remove jewelry
== END 2024-07-17 15:30 | disposition home or self-care (01) | DRG 455 ==
PROVIDERS: Admitting Provider Orthopaedic Surgery Orthopaedic Surgery of the Spine; Family Provider Family Medicine; PCP Family Medicine; Referring Provider Orthopaedic Surgery Orthopaedic Surgery of the Spine; Visit Provider Orthopaedic Surgery Orthopaedic Surgery of the Spine
PROC: 0SG00AJ Fusion of Lumbar Vertebral Joint with Interbody Fusion Device, Posterior Approach, Anterior Column, Open Approach (ICD-10-PCS; principal; 2024-07-16 12:15)
DX: M43.16 Spondylolisthesis, lumbar region (principal); M48.062 Spinal stenosis, lumbar region with neurogenic claudication; M54.16 Radiculopathy, lumbar region
CPT/HCPCS: 72100; 76000; 97116; 97161; 97165; 97530; 97535; C1713; C9290; J0171; J0330; J0690; J1100; J1170; J2405; J2704; J3010; J3410

== ENCOUNTER → 2025-01-03 10:57 | Outpatient (CLI) | payer MEDICARE, OTHER, SELFPAY ==
[2024-07-16 16:19] VITALS: BMI 23.3
--- NOTE | 2025-01-03 10:58 | DI.MG.S_ITS ---
MM screening mammo BI: 01/03/2025. BI-RADS: 2 CLINICAL: 79-year old female for bilateral screening mammogram. Tyrer-Cuzick lifetime risk of 2.5%. No personal or first-degree family history of breast cancer. PRIOR EXAMS 05/26/2022, 03/27/2020, 03/14/2018. MAMMOGRAPHY TECHNIQUE: 2D and 3D (tomosynthesis) digital mammographic views obtained, with additional images as needed for full coverage. Current study was also evaluated with a Computer Aided Detection (CAD) system. DENSITY C. The breasts are heterogeneously dense, which may obscure small masses. MAMMOGRAPHY FINDINGS No suspicious mass, asymmetry, microcalcification, or other abnormality seen. Bilateral: Benign-appearing calcifications noted. Typically-benign vascular calcifications also noted. IMPRESSION: * No evidence of malignancy with benign findings. RECOMMENDATIONS Bilateral * Annual screening mammography. OVERALL ASSESSMENT CATEGORY BI-RADS-2: Benign. [employer] recommends annual screening mammography beginning at age 40 for women with average risk of breast cancer. ELECTRONICALLY SIGNED: Pina Polk M.D. on 01/03/2025 at 04:24:55 PM PT Interpreting Station ID: [id number]
== END ==
PROVIDERS: Family Provider Family Medicine; PCP Family Medicine; Referring Provider Family Medicine; Visit Provider Family Medicine
DX: Z12.31 Encounter for screening mammogram for malignant neoplasm of breast (principal); R92.333 Mammographic heterogeneous density, bilateral breasts; R92.1 Mammographic calcification found on diagnostic imaging of breast
CPT/HCPCS: 77063; 77067